=== PATIENT | male | born 1980 | race Hispanic/Latino ===

== ENCOUNTER 2022-02-15 10:35 | Emergency (ER) | payer OTHER ==
[~2022-02-15] VITALS: Ht 182.9 cm; Wt 109.9 kg
--- OUTSIDE RECORDS SUMMARY | 2022-02-15 10:44 | XMS ---
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 Gary has no Care Guidelines for this patient. Cherise VISIT COUNT (12 MO.) 1 [facility] 1 [facility] TOTAL 2 NOTE: Visits indicate total known visits. ED/C VISIT TRACKING (12 MO.) 02/15/2022 10:36 [facility] [place] TYPE: Emergency COMPLAINT: - KNEE PAIN/SWOLLEN 02/12/2022 07:09 [facility] [place] TYPE: Emergency DIAGNOSES: - Other bursitis of knee, left knee - L KNEE PAIN INPATIENT VISIT TRACKING (12 MO.) No inpatient visits to display in this time frame [email or web address]
[2022-02-15] MEDS ORDERED: ATORVASTATIN CA40 MG PO (10:51)
[2022-02-15] MEDS ORDERED: CLOPIDOGREL75 MG PO (10:52)
[2022-02-15] MEDS ORDERED: TOPROL XL50 MG PO (10:52)
[2022-02-15] MEDS ORDERED: BAYER CHEWABLE81 MG PO (10:53)
== END 2022-02-15 12:11 | disposition home or self-care (01) ==
LOC: ED 10:35
DX: M70.42 Prepatellar bursitis, left knee (principal); Z79.899 Other long term (current) drug therapy; Z79.82 Long term (current) use of aspirin
CPT/HCPCS: 99283